=== PATIENT | male | born 1935 | race Caucasian/White ===

== ENCOUNTER → 2020-10-10 | Outpatient (CLI) | payer OTHER | LOC: HYPER 08:28 | PROVIDERS: ATTEND Emergency Medicine | DX: T81.32XA Disruption of internal operation (surgical) wound, not elsewhere classified, initial encounter (principal); I87.312 Chronic venous hypertension (idiopathic) with ulcer of left lower extremity; L97.822 Non-pressure chronic ulcer of other part of left lower leg with fat layer exposed; C44.719 Basal cell carcinoma of skin of left lower limb, including hip; I25.10 Atherosclerotic heart disease of native coronary artery without angina pectoris; F41.9 Anxiety disorder, unspecified; Z87.891 Personal history of nicotine dependence; Z86.711 Personal history of pulmonary embolism; Z79.82 Long term (current) use of aspirin; Z79.899 Other long term (current) drug therapy; Z96.652 Presence of left artificial knee joint; Y83.1 Surgical operation with implant of artificial internal device as the cause of abnormal reaction of the patient, or of later complication, without mention of misadventure at the time of the procedure ==

== ENCOUNTER → 2020-10-10 | Outpatient (CLI) | payer OTHER | LOC: SJCVCIMAG 09:45 | PROVIDERS: ATTEND Emergency Medicine | DX: I73.9 Peripheral vascular disease, unspecified (principal); M79.661 Pain in right lower leg; M79.662 Pain in left lower leg ==

== ENCOUNTER → 2020-10-17 | Outpatient (CLI) | payer OTHER | LOC: HYPER 12:58 | PROVIDERS: ATTEND Emergency Medicine Emergency Medical Services | DX: T81.32XD Disruption of internal operation (surgical) wound, not elsewhere classified, subsequent encounter (principal); I87.312 Chronic venous hypertension (idiopathic) with ulcer of left lower extremity; L97.822 Non-pressure chronic ulcer of other part of left lower leg with fat layer exposed; C44.719 Basal cell carcinoma of skin of left lower limb, including hip; I25.10 Atherosclerotic heart disease of native coronary artery without angina pectoris; I42.9 Cardiomyopathy, unspecified; F41.9 Anxiety disorder, unspecified; Z86.711 Personal history of pulmonary embolism; Z87.891 Personal history of nicotine dependence; Y83.8 Other surgical procedures as the cause of abnormal reaction of the patient, or of later complication, without mention of misadventure at the time of the procedure ==

== ENCOUNTER → 2020-10-31 | Outpatient (CLI) | payer OTHER | LOC: HYPER 08:22 | PROVIDERS: ATTEND Emergency Medicine | DX: T81.32XD Disruption of internal operation (surgical) wound, not elsewhere classified, subsequent encounter (principal); I87.312 Chronic venous hypertension (idiopathic) with ulcer of left lower extremity; L97.822 Non-pressure chronic ulcer of other part of left lower leg with fat layer exposed; C44.719 Basal cell carcinoma of skin of left lower limb, including hip; I25.10 Atherosclerotic heart disease of native coronary artery without angina pectoris; I42.9 Cardiomyopathy, unspecified; F41.9 Anxiety disorder, unspecified; Z86.711 Personal history of pulmonary embolism; Z87.891 Personal history of nicotine dependence; Y83.8 Other surgical procedures as the cause of abnormal reaction of the patient, or of later complication, without mention of misadventure at the time of the procedure ==

== ENCOUNTER → 2020-11-14 | Outpatient (CLI) | payer OTHER | LOC: HYPER 07:59 | PROVIDERS: ATTEND Emergency Medicine | DX: T81.32XD Disruption of internal operation (surgical) wound, not elsewhere classified, subsequent encounter (principal); I87.312 Chronic venous hypertension (idiopathic) with ulcer of left lower extremity; L97.822 Non-pressure chronic ulcer of other part of left lower leg with fat layer exposed; C44.719 Basal cell carcinoma of skin of left lower limb, including hip; I25.10 Atherosclerotic heart disease of native coronary artery without angina pectoris; I42.9 Cardiomyopathy, unspecified; F41.9 Anxiety disorder, unspecified; Z86.711 Personal history of pulmonary embolism; Z87.891 Personal history of nicotine dependence; Y83.8 Other surgical procedures as the cause of abnormal reaction of the patient, or of later complication, without mention of misadventure at the time of the procedure ==

== ENCOUNTER → 2020-11-19 | Outpatient (CLI) | payer OTHER | LOC: HYPER 08:06 | PROVIDERS: ATTEND Emergency Medicine Emergency Medical Services | DX: T81.32XD Disruption of internal operation (surgical) wound, not elsewhere classified, subsequent encounter (principal); I87.312 Chronic venous hypertension (idiopathic) with ulcer of left lower extremity; L97.822 Non-pressure chronic ulcer of other part of left lower leg with fat layer exposed; C44.719 Basal cell carcinoma of skin of left lower limb, including hip; I25.10 Atherosclerotic heart disease of native coronary artery without angina pectoris; I42.9 Cardiomyopathy, unspecified; F41.9 Anxiety disorder, unspecified; Z86.711 Personal history of pulmonary embolism; Z87.891 Personal history of nicotine dependence; Y83.8 Other surgical procedures as the cause of abnormal reaction of the patient, or of later complication, without mention of misadventure at the time of the procedure ==

== ENCOUNTER → 2020-11-21 | Outpatient (CLI) | payer OTHER | LOC: HYPER 08:00 | PROVIDERS: ATTEND Emergency Medicine | DX: T81.32XD Disruption of internal operation (surgical) wound, not elsewhere classified, subsequent encounter (principal); I87.312 Chronic venous hypertension (idiopathic) with ulcer of left lower extremity; L97.822 Non-pressure chronic ulcer of other part of left lower leg with fat layer exposed; C44.719 Basal cell carcinoma of skin of left lower limb, including hip; I25.10 Atherosclerotic heart disease of native coronary artery without angina pectoris; I42.9 Cardiomyopathy, unspecified; F41.9 Anxiety disorder, unspecified; Z86.711 Personal history of pulmonary embolism; Z87.891 Personal history of nicotine dependence; Y83.8 Other surgical procedures as the cause of abnormal reaction of the patient, or of later complication, without mention of misadventure at the time of the procedure ==

== ENCOUNTER → 2020-11-28 | Outpatient (CLI) | payer OTHER | LOC: HYPER 07:58 | PROVIDERS: ATTEND Emergency Medicine | DX: T81.32XD Disruption of internal operation (surgical) wound, not elsewhere classified, subsequent encounter (principal); I87.312 Chronic venous hypertension (idiopathic) with ulcer of left lower extremity; L97.822 Non-pressure chronic ulcer of other part of left lower leg with fat layer exposed; C44.719 Basal cell carcinoma of skin of left lower limb, including hip; I25.10 Atherosclerotic heart disease of native coronary artery without angina pectoris; I42.9 Cardiomyopathy, unspecified; F41.9 Anxiety disorder, unspecified; Z86.711 Personal history of pulmonary embolism; Z87.891 Personal history of nicotine dependence; Y83.8 Other surgical procedures as the cause of abnormal reaction of the patient, or of later complication, without mention of misadventure at the time of the procedure ==

== ENCOUNTER → 2020-12-05 | Outpatient (CLI) | payer OTHER | LOC: HYPER 07:44 | PROVIDERS: ATTEND Emergency Medicine | DX: T81.32XD Disruption of internal operation (surgical) wound, not elsewhere classified, subsequent encounter (principal); I87.312 Chronic venous hypertension (idiopathic) with ulcer of left lower extremity; L97.822 Non-pressure chronic ulcer of other part of left lower leg with fat layer exposed; S81.802A Unspecified open wound, left lower leg, initial encounter; C44.719 Basal cell carcinoma of skin of left lower limb, including hip; I25.10 Atherosclerotic heart disease of native coronary artery without angina pectoris; I42.9 Cardiomyopathy, unspecified; F41.9 Anxiety disorder, unspecified; Z86.711 Personal history of pulmonary embolism; Z87.891 Personal history of nicotine dependence; X58.XXXA Exposure to other specified factors, initial encounter; Y93.89 Activity, other specified; Y92.89 Other specified places as the place of occurrence of the external cause; Y99.8 Other external cause status; Y83.8 Other surgical procedures as the cause of abnormal reaction of the patient, or of later complication, without mention of misadventure at the time of the procedure ==

== ENCOUNTER → 2020-12-12 | Outpatient (CLI) | payer OTHER | LOC: HYPER 08:39 | PROVIDERS: ATTEND Emergency Medicine | DX: T81.32XD Disruption of internal operation (surgical) wound, not elsewhere classified, subsequent encounter (principal); I87.312 Chronic venous hypertension (idiopathic) with ulcer of left lower extremity; L97.822 Non-pressure chronic ulcer of other part of left lower leg with fat layer exposed; S81.802D Unspecified open wound, left lower leg, subsequent encounter; C44.719 Basal cell carcinoma of skin of left lower limb, including hip; I25.10 Atherosclerotic heart disease of native coronary artery without angina pectoris; I42.9 Cardiomyopathy, unspecified; F41.9 Anxiety disorder, unspecified; Z86.711 Personal history of pulmonary embolism; Z87.891 Personal history of nicotine dependence; X58.XXXD Exposure to other specified factors, subsequent encounter; Y83.8 Other surgical procedures as the cause of abnormal reaction of the patient, or of later complication, without mention of misadventure at the time of the procedure ==

== ENCOUNTER → 2020-12-20 | Outpatient (CLI) | payer OTHER | LOC: HYPER 08:01 | PROVIDERS: ATTEND Emergency Medicine | DX: T81.32XD Disruption of internal operation (surgical) wound, not elsewhere classified, subsequent encounter (principal); I87.312 Chronic venous hypertension (idiopathic) with ulcer of left lower extremity; L97.822 Non-pressure chronic ulcer of other part of left lower leg with fat layer exposed; S80.812D Abrasion, left lower leg, subsequent encounter; S81.802D Unspecified open wound, left lower leg, subsequent encounter; C44.719 Basal cell carcinoma of skin of left lower limb, including hip; I25.10 Atherosclerotic heart disease of native coronary artery without angina pectoris; I42.9 Cardiomyopathy, unspecified; F41.9 Anxiety disorder, unspecified; Z86.711 Personal history of pulmonary embolism; Z87.891 Personal history of nicotine dependence; X58.XXXD Exposure to other specified factors, subsequent encounter; Y83.8 Other surgical procedures as the cause of abnormal reaction of the patient, or of later complication, without mention of misadventure at the time of the procedure ==

== ENCOUNTER → 2020-12-26 | Outpatient (CLI) | payer OTHER | LOC: HYPER 07:42 | PROVIDERS: ATTEND Emergency Medicine | DX: T81.32XD Disruption of internal operation (surgical) wound, not elsewhere classified, subsequent encounter (principal); I87.312 Chronic venous hypertension (idiopathic) with ulcer of left lower extremity; L97.822 Non-pressure chronic ulcer of other part of left lower leg with fat layer exposed; C44.719 Basal cell carcinoma of skin of left lower limb, including hip; S80.812D Abrasion, left lower leg, subsequent encounter; I25.10 Atherosclerotic heart disease of native coronary artery without angina pectoris; F41.9 Anxiety disorder, unspecified; Z86.711 Personal history of pulmonary embolism; Z87.891 Personal history of nicotine dependence; Z79.82 Long term (current) use of aspirin; Z79.899 Other long term (current) drug therapy; X58.XXXD Exposure to other specified factors, subsequent encounter; Y83.8 Other surgical procedures as the cause of abnormal reaction of the patient, or of later complication, without mention of misadventure at the time of the procedure ==

== ENCOUNTER → 2021-01-02 | Outpatient (CLI) | payer OTHER | LOC: HYPER 08:23 | PROVIDERS: ATTEND Emergency Medicine | DX: T81.32XD Disruption of internal operation (surgical) wound, not elsewhere classified, subsequent encounter (principal); I87.312 Chronic venous hypertension (idiopathic) with ulcer of left lower extremity; L97.822 Non-pressure chronic ulcer of other part of left lower leg with fat layer exposed; C44.719 Basal cell carcinoma of skin of left lower limb, including hip; S80.812D Abrasion, left lower leg, subsequent encounter; I25.10 Atherosclerotic heart disease of native coronary artery without angina pectoris; I42.9 Cardiomyopathy, unspecified; F41.9 Anxiety disorder, unspecified; Z86.711 Personal history of pulmonary embolism; Z87.891 Personal history of nicotine dependence; Z79.82 Long term (current) use of aspirin; X58.XXXD Exposure to other specified factors, subsequent encounter; Y83.8 Other surgical procedures as the cause of abnormal reaction of the patient, or of later complication, without mention of misadventure at the time of the procedure ==